=== PATIENT | male | born 1970 | race Caucasian/White ===

== ENCOUNTER 2017-12-22 11:59 | Day surgery (SDC) | payer MEDICARE, MEDICAID ==
--- NOTE | 2017-12-22 07:13 | History and Physical Report ---
DATE: 12/22/2017. CHIEF COMPLAINT AND HISTORY OF CHIEF COMPLAINT: This patient presents with a history of a postlaminectomy radiculopathy. His treatment history is extensive and conservative as well as aggressive. Opioid reduction has taken place with titration down. Due to the failure of therapy, he is here for an implanted spinal catheter infusion trial with hydromorphone to determine if the implantation of a permanent system can be of any value in his pain control. His diagnostics confirm four levels of hardware fusion at 3, 4, 5, and S1. PAST MEDICAL HISTORY: Noncontributory. PAST SURGICAL HISTORY: Multiple lumbar spinal surgeries. MEDICATIONS ON ADMISSION: To be provided; no blood thinners. ALLERGIES: None listed. SOCIAL HISTORY: Smoking, caffeine. FAMILY HISTORY: Coronary artery disease, cancer. REVIEW OF SYSTEMS: The patient seems appropriate and in no acute distress. The remainder of the systems review shows difficulty sleeping, glasses. PHYSICAL EXAMINATION: General: Height and weight unavailable. Vital Signs: Not available. HEENT: Within normal limits. Lungs: Clear. Heart: Regular rate and rhythm. Abdomen: Nontender. Musculoskeletal: Examination of the musculoskeletal system shows diffuse tenderness throughout the lumbar spine. Range of motion does produce pain into both legs. He has sensory abnormalities across the front and back surface of both legs and motor weakness in both legs. His reflexes are difficult to elicit. Ambulation: Assistive device utilized. Neurologic: Cranial nerves are intact. IMPRESSION: 1. POSTLUMBAR LAMINECTOMY SYNDROME, ICD-10 CODE M96.1. 2. RADICULOPATHY, ICD-10 CODE M54.16 AND M54.17. PLAN: The patient is here for an implanted spinal catheter infusion trial with hydromorphone to determine if the implantation of a permanent system can be of any value in his pain control. Because of the spinal catheter, a blood patch will be performed. The blood patch will require that the patient lie flat for four hours and then be slowly elevated for one hour. An overnight stay will be recommended, although an outpatient procedure can be considered. The potential risks, side effects, and complications have all been reviewed. Information from the bakery products checker was provided which fully explains the risks, side effects , and complications. Direct contact with a clinical specialist has also been provided. His questions have all been answered. JOB NUMBER: [id number] cc: Trav Lane D.O. MTDD
[~2017-12-22 11:59] MED LIST: ACETAMINOPHEN 1,000 MG/100 ML BTL IV ONE; CEFAZOLIN 2 Gram 2 GM/50 ML BAG IVPB ONE; FAMOTIDINE 20MG TABLET PO ONE; HYDROMORPHONE PF 2MG/ML AMP 0.008 MG in 0.9 % SODIUM CHLORIDE 10ML VIA 0.996 ML IV ONE; HYDROMORPHONE PF 2MG/ML AMP 8 MG in 0.9 % SODIUM CHLORIDE 500ML 496 ML IV ONE; MECLIZINE 25 MG TABLET PO ONE; METOCLOPRAMIDE 10 MG TABLET PO ONE
[2017-12-22] MEDS ORDERED: HYDROMORPHONE HCL 2 MG/ML VIAL IV ONE (12:00)
[2017-12-22] MEDS ORDERED: CEFAZOLIN 1G VIAL IM ONE (12:00)
[2017-12-22] MEDS ORDERED: LIDOCAINE 2% MDV (20MG/ML) 20ML VIAL IV ONE (12:00)
[2017-12-22] MEDS ORDERED: PROPOFOL 10 MG/ML VIAL IV ONE (12:00)
[2017-12-22] MEDS ORDERED: BUPIVACAINE 0.5% W/EPI MPF 30 ML VIAL IVP ONE (12:00)
[2017-12-22] MEDS ORDERED: 0.9 % SODIUM CHLORIDE 10 ML VIAL IVP ONE (12:00)
[2017-12-22] MEDS ORDERED: MIDAZOLAM HCL 2MG/2ML VIAL IV ONE (12:00)
[2017-12-22] MEDS ORDERED: FENTANYL PF 100MCG/2ML VIAL IV ONE (12:00)
[2017-12-22] MEDS ORDERED: LIDOCAINE 1% W/EPI 1:200,000 MPF 30ML SQ ONE (12:00)
[2017-12-22 12:13] LABS: BASO % 0.2 % (0-6); EOS % 0.8 % (0-6); GRAN % 73.2 % (47-80); HEMATOCRIT 42.7 % (42.0-52.0); HEMOGLOBIN 14.3 gm/dl (14.0-18.0); LYMPH % 19.3 % (16-45); MEAN CELL VOLUME 96.8 fl (81-97); MEAN CORPUSCULAR HEMOGLOBIN 32.4 pg (27-33); MEAN CORPUSCULAR HGB CONC 33.5 g/dl (32-36); MONO % 6.5 % (0-9); PLATELET COUNT 374 K/uL (130-400); RED BLOOD COUNT 4.41 M/uL (4.40-5.70); WHITE BLOOD COUNT W/O DIFF 18.7 K/uL (4.2-12.2)
[2017-12-22] MEDS ORDERED: HYDROMORPHONE HCL 2 MG/ML VIAL IM PRN ×2 (17:27)
[2017-12-22] MEDS ORDERED: NICOTINE POLACRILEX 2 MG GUM BC PRN ×2 (17:27)
[2017-12-22] MEDS ORDERED: AL HYDROX/MAG HYDROX 30ML UD PO PRN (17:27)
[2017-12-22] MEDS ORDERED: METOCLOPRAMIDE 10 MG TABLET PO PRN (17:27)
[2017-12-22] MEDS ORDERED: TEMAZEPAM 15 MG CAPSULE PO PRN ×2 (17:27)
[2017-12-22] MEDS ORDERED: METOCLOPRAMIDE HCL 10 MG/2 ML VIAL IVP PRN (17:27)
[2017-12-22] MEDS ORDERED: ACETAMINOPHEN 325 MG TAB PO PRN ×2 (17:27)
[2017-12-22] MEDS ORDERED: SENNOSIDES/DOCUSATE SODIUM UD CAPSULE PO PRN ×2 (17:27)
[2017-12-22] MEDS ORDERED: DIPHENHYDRAMINE HCL 25 MG CAPSULE PO PRN ×2 (17:27)
[2017-12-22] MEDS ORDERED: HYDROCODONE/APAP 7.5/325MG TABLET PO PRN ×2 (17:27)
[2017-12-22] MEDS ORDERED: DIPHENHYDRAMINE HCL 50 MG/ML VIAL IVP PRN ×2 (17:27)
[2017-12-22] MEDS ORDERED: OXYCODONE/APAP 10MG-325MG TABLET PO PRN (17:27)
[2017-12-22] MEDS ORDERED: NICOTINE 21 MG/24 HOUR PATCH TD SCH (17:30)
[2017-12-22] MEDS: RINGERS SOLUTION,LACTATED 1,000 ML IV SCH (18:43)
[2017-12-22] MEDS: OXYCODONE/APAP 10MG-325MG TABLET PO PRN (18:44)
[2017-12-22] MEDS: CEFAZOLIN 1 Gram 1 GM/50 ML BAG IVPB SCH ×2 (21:45→22:22)
[2017-12-23] MEDS: OXYCODONE/APAP 10MG-325MG TABLET PO PRN ×3 (00:29→09:17)
[2017-12-23] MEDS: CEFAZOLIN 1 Gram 1 GM/50 ML BAG IVPB SCH ×2 (05:53→06:32)
[2017-12-23] MEDS: RINGERS SOLUTION,LACTATED 1,000 ML IV SCH (05:56)
--- NOTE | 2017-12-25 21:24 | RADIOLOGY REPORT ---
EXAM: SPINE, 1 VIEW HISTORY: INTRASPINAL CATHETER INSERTION. TECHNIQUE: Single AP portable spine view of the spine is obtained including the lower thoracic spine down to the L4 level. COMPARISON: Intraoperative radiographs of the lumbar spine dated 12/22/2017 at 1613. FINDINGS: An intraspinal catheter is in place. It appears to enter the spinal canal at the L2-L3 level and the tip of the catheter is at the T12 level. No acute osseous abnormality is seen. There are mild degenerative disc/endplate changes scattered throughout the visualized spine. Posterior screw and luis f fusion of the lower lumbar spine is again noted. IMPRESSION: INTRASPINAL CATHETER IN PLACE, LIKELY ENTERING THE SPINAL CANAL AT THE L2-L3 LEVEL WITH ITS TIP AT THE T12 LEVEL. JOB NUMBER: [id number] MTDD
--- NOTE | 2017-12-29 22:44 | Operative Note - Ferro ---
DATE OF SURGERY: 12/22/17 PREOPERATIVE DIAGNOSIS: 1. POST LAMINECTOMY SYNDROME, ICD-10 CODE = M96.1. 2. LUMBAR RADICULOPATHY, ICD-10 CODE = M54.16 AND M54.17. SURGERY: 1. FLUOROSCOPIC-GUIDED PLACEMENT AND CANNULATION INTO SPINAL SPACE AT L3-4, PLACEMENT OF CATHETER INTO SPINAL SPACE T11. 2. DIAGNOSTIC MYELOGRAPHY WITH RADIOLOGIC SUPERVISION AND INTERPRETATION. 3. BOLUS OF HYDROMORPHONE INTO SPINAL SPACE, 0.008 MG. 4. INCISION, SUBCUTANEOUS DISSECTION, AND ANCHORING OF SPINAL CATHETER TO SUPRASPINOUS FASCIA USING ANCHOR AND NONABSORBABLE SUTURE. 5. INCISION, SUBCUTANEOUS DISSECTION, AND FORMATION OF SMALL SUBCUTANEOUS POUCH AT POSTERIOR GLUTEAL MARGIN. 6. TUNNELING BETWEEN SPINAL CATHETER POUCH INTO POSTERIOR GLUTEAL MARGIN POUCH WITH TUNNELING TOOL, PLACEMENT OF CATHETER INTO THE POUCH, INTERFACE CATHETER WITH SECONDARY CATHETER COMPONENT BY WAY OF CONNECTOR, TUNNELING SECOND CATHETER COMPONENT 6 CM SUPERIOR, EXITING SKIN. INTERFACE TO EXTERNAL PUMP SET TO DELIVER HYDROMORPHONE AT 0.08 MG PER DAY. 7. CLOSURE OF MIDLINE INCISION WITH STRATAFIX SUTURE, 2-0 FASCIA, 3-0 SUBCUTICULAR. CLOSURE OF POSTERIOR GLUTEAL MARGIN INCISION WITH RUNNING NYLON. NO BLOOD PATCH BECAUSE OF MULTIPLE-LEVEL FUSION. SURGEON: LENORE HOLLIS D.O. ANESTHESIA: LOCAL SEDATION. ANESTHESIA PROVIDER: SINDY MO CRNA INDICATIONS: This patient presents with a history of multiple levels of spinal fusion from 3-4 to 5-1 with screws and rods and extensive arthritic change. Due to the failure of therapy, he is here for a trial of spinal opioids using an implanted technique and Hydromorphone. SURGERY: Intravenous line, vital sign monitoring, IV sedation, prepped and draped sterile technique. The spinal interspace at L3-4 was marked, infiltrated. A #20 gauge spinal using a paramedial approached beveled with a long axis was placed into the spinal space using AP and lateral imaging. With CSF flow, a thin-walled spinal catheter was advanced and positioned at T11. Diagnostic myelography was performed. The flow characteristics were smooth and linear into the spinal space. There was no pain or adverse reaction on the part of the patient. Smooth and linear flow characteristics. Catheter was straight and linear. With these positive findings, a bolus of Hydromorphone 0.008 mg was given into the spinal space. There was still CSF flow through the catheter. The catheter was clamped. The skin above and below the needle infiltrated, incision made and subcutaneous dissection was conducted to the supraspinous fascia. The needles were removed and then the catheter was anchored to the supraspinous fascia with an anchoring device and nonabsorbable suture. CSF was still noted through the catheter. The catheter was clamped. At the posterior superior gluteal margin, skin infiltrated, incision made and subcutaneous dissection was conducted to form a small pouch. The spinal catheter was then tunneled into the posterior gluteal pouch and then once in the pouch, interfaced with a second catheter component by way of a connector. The second catheter component was then tunneled 6 cm superior from this pouch exiting the skin. It was then extended to an external pump, which was programmed to deliver into the external catheter Hydromorphone at 0.08 mg a day. The midline incision was closed with a STRATAFIX suture, 2-0 for fascia and 3-0 subcuticular. The posterior gluteal margin pouch was closed with a running nylon. There was no blood patch performed because of extensive spinal surgery. Dressings placed securing the catheter and all connections under sterile dressing. He was transported to the Recovery Room flat, pillow under head and knees, stable. There were no side effects, no unusual pain patterns, and full functionality of the extremities. He was monitored until stable and then transported to the Floor, where he was monitored and will be kept overnight for observation. He will stay flat for four hours, slowly elevated for one, and then discharged in the morning. DISCHARGE INSTRUCTIONS: 1. The sites are to remain clean and dry. No showering or bathing in any way that would disrupt dressings. 2. He has been advised on the external pump as well as the external catheter and the precautions. 3. Standard medications resumed, including Levaquin, the antibiotic, 500 mg once a day for 14 days. He is currently on OxyContin 20 mg three times a day. We will work to get him down to two and then ultimately get him off the OxyContin. 3. Spinal opioid side effects including respiratory depression, nausea, vomiting, constipation, urinary retention, lightheadedness, or rash have all be discussed and reviewed. All other instructions provided, numbers to contact if problems given. He will be discharged in the morning. 4. The office will contact him in 12 to 24 hours to set up a time in the following week for us to do our first increase. All other instructions provided , numbers to contact if problems given. He will be discharged. cc: Dr. Polo Lamb JOB NUMBER: [id number] MTDD
== END 2017-12-23 09:30 | disposition home or self-care (01) ==
LOC: SUR 11:59 → MEDSURG 17:55 → SUR 12-23 09:30
PROVIDERS: ATTEND Pain Medicine Interventional Pain Medicine
DX: M96.1 Postlaminectomy syndrome, not elsewhere classified (principal); M54.16 Radiculopathy, lumbar region; M54.17 Radiculopathy, lumbosacral region; F11.21 Opioid dependence, in remission
CPT/HCPCS: 72020; 85025; J0690; J1170; J7040; J7120

== ENCOUNTER 2018-01-05 12:42 | Day surgery (SDC) | payer MEDICAID, MEDICARE ==
--- NOTE | 2018-01-05 07:28 | History and Physical - Ferro ---
CHIEF COMPLAINT/HISTORY OF CHIEF COMPLAINT: This patient who had an implanted catheter trial initiated on 12/22/17 is here for permanent implant of the pump. The trial has succeeded in up to 75% pain control. Due to the failure of all therapies and an obvious medication dependency with multiple opioids and with the subsequent reduction dramatically of his opioid use he is here for permanent implant. PAST MEDICAL HISTORY: Noncontributory. PAST SURGICAL HISTORY: Multiple lumbar spinal surgeries and interspinal catheter implant. MEDICATIONS ON ADMISSION: List to be provided. ALLERGIES: None. FAMILY/PSYCHOSOCIAL HISTORY: Social history - Smoking and caffeine. Family history - Coronary artery disease and cancer. SYSTEMS REVIEW: The patient is appropriate in no acute distress. The remainder of the systems review is positive for sleeping disturbance and glasses. PHYSICAL EXAMINATION: Height and weight not identified. No vital signs. HEENT: Within normal limits. LUNGS: Clear. HEART: Regular rate and rhythm. ABDOMEN: Nontender. MUSCULOSKELETAL: Examination of the musculoskeletal system shows the dressings for the implanted catheter trial are intact. Spinal catheter shows all components are intact and fully covered maintaining sterility of the field. His primary pain pattern was low back with a bilateral lower extremity extension. He does show motor weakness and sensory abnormalities to both lower extremities. An assistive device is used for his ambulation. NEUROLOGIC: Cranial nerves are intact. IMPRESSION: 1. POST LUMBAR LAMINECTOMY SYNDROME, ICD-10 CODE M96.1 WITH LUMBAR RADICULOPATHY ICD-10 CODE M54.16 AND M54.17. 2. IMPLANTED SPINAL CATHETER INFUSION TRIAL OF HYDROMORPHONE. PLAN: With the success of the trial and failure of other therapies, he is here for implant of permanent system. The procedure will be considered outpatient although an overnight stay will be evaluated. JOB NUMBER: [id number] [facility]
[~2018-01-05 12:42] MED LIST changes: +HYDROMORPHONE HCL 0.04 GM in 0.9 % SODIUM CHLORIDE 10ML VIA 20 ML IV ONE; -HYDROMORPHONE PF 2MG/ML AMP 8 MG in 0.9 % SODIUM CHLORIDE 500ML 496 ML IV ONE
[2018-01-05] MEDS ORDERED: LIDOCAINE 1% W/EPI 1:200,000 MPF 30ML SQ ONE (12:43)
[2018-01-05] MEDS ORDERED: LIDOCAINE 2% MDV (20MG/ML) 20ML VIAL IV ONE (12:43)
[2018-01-05] MEDS ORDERED: PROPOFOL 10 MG/ML VIAL IV ONE (12:43)
[2018-01-05] MEDS ORDERED: CEFAZOLIN 1G VIAL IM ONE (12:43)
[2018-01-05] MEDS ORDERED: BUPIVACAINE 0.5% W/EPI MPF 30 ML VIAL IVP ONE (12:43)
[2018-01-05] MEDS ORDERED: *PACU ONLY* KETAMINE HCL 10 MG/ML (20ML) VIAL IV ONE (12:43)
[2018-01-05] MEDS ORDERED: MIDAZOLAM HCL 2MG/2ML VIAL IV ONE (12:43)
--- NOTE | 2018-01-06 23:10 | Operative Note - Ferro ---
DATE OF SURGERY: 01/05/18. PREOPERATIVE DIAGNOSES: 1. POST LUMBAR LAMINECTOMY SYNDROME, ICD-10 CODE = M96.1 WITH RADICULOPATHY, ICD-10 CODE = M54.16 AND M54.17. 2. IMPLANTED SPINAL CATHETER INFUSION TRIAL HYDROMORPHONE. SURGERY: 1. FLUOROSCOPIC-GUIDED INCISION, SUBCUTANEOUS DISSECTION, AND REMOVAL OF EXTERNAL CATHETER. 2. FLUOROSCOPIC-GUIDED INCISION, SUBCUTANEOUS DISSECTION, AND REVISION AND RESECTION OF INDWELLING SPINAL CATHETER INTERFACED WITH SECOND CATHETER COMPONENT BY WAY OF CONNECTOR. 3. INCISION, SUBCUTANEOUS DISSECTION, AND CREATION OF SUBCUTANEOUS POUCH AT RIGHT FLANK FOR PLACEMENT OF PUMP IDENTIFIED A MEDTRONIC 20 ML PROGRAMMABLE. 4. INTERFACE REVISED CATHETER TO PUMP, PLACEMENT OF PUMP INTO POUCH SECURING TO POSTERIOR FASCIA WITH NONABSORBABLE SUTURE, THREE-POINT PUMP EYELETS, PUMP INTO POUCH. 5. PLACEMENT OF CURVED #24 GAUGE RAMIREZ NEEDLE INTO ACCESS PORT PROGRAMMABLE PUMP, ASPIRATION 1 ML OF CATHETER CONTENTS CLEARING CATHETER OF OPIOID AND CSF MIXTURE. 6. DIAGNOSTIC MYELOGRAPHY WITH RADIOLOGIC SUPERVISION AND INTERPRETATION CONFIRMING CATHETER COMPONENTS, INTEGRITY OF SYSTEM, AND FUNCTIONALITY OF THE SYSTEM. 7. CLOSURE OF INCISION WITH STRATAFIX SUTURE, 2-0 FACIA AND 3-0 RUNNING SUBCUTICULAR. DERMABOND CLOSURE. 8. PROGRAMMING OF PUMP TO DELIVER BY CONTINUOUS INFUSION HYDROMORPHONE AT 0.5 MG A DAY. SURGEON: LENORE HOLLIS D.O. ANESTHESIA: LOCAL SEDATION. ANESTHESIA PROVIDER: CHANDU MAE CRNA INDICATIONS: This patient presents with a history of intractable lumbar post laminectomy radiculopathy. Due to the failure of all therapy, an implanted spinal catheter infusion trial with Hydromorphone was conducted. He had 75% pain control. Due to the failure of therapy and the success of the trial, he is here for permanent implantation. PROCEDURE: Intravenous line, vital sign monitoring, IV sedation, prepped draped sterile technique, patient positioned prone. Sterile prep and sterile technique, the previous pouch at the right flank was identified. The running nylon suture was removed. Skin infiltrated, incision made and subcutaneous dissection was conducted to form a pouch of suitable size and depth for the pump identified as a Medtronic 20 mL programmable. The indwelling catheter was identified. The connector to the external catheter was cut, the external catheter was removed by pulling away from the incision. The internal catheter was then resected and revised with a second catheter component by way of a connector. This second catheter component was interfaced to a new pump placed onto the field, 20 mL programmable [employer], pre-filled Hydromorphone 1 mg per mL. The revised catheter was interfaced to the pump. Antibiotic irrigation, Bovie for hemostasis. The pump was then placed into the formed pouch and secured to the posterior fascia with nonabsorbable suture at three points, pump eyelets. With the pump into the pouch subcutaneously, a #24 gauge Ramirez needle was inserted into the access port and 1 mL of catheter contents was aspirated clearing the catheter of opioid and CSF mixture. Diagnostic myelography was then performed. The resulting flow characteristics identified the integrity of the system. Flow at the T1-L1 spinal interspace noted, which was appropriate for the space. With this confirmation of functionality, the incision was closed using STRATAFIX suture, a 2-0 for facia and a 3-0 running subcuticular. A Dermabond closure was placed. He was transported to the Recovery Room stable, no side-effects from the procedure or the sedation. When fully awake and alert, he was prepared for discharge. DISCHARGE INSTRUCTIONS: 1. The site is to remain clean and dry. No showering or bathing in any way that would disrupt dressings. If it happens, contact the clinic. 2. Standard medications will be resumed including his Levaquin, the antibiotic, 500 mg once a day for 14 days. 3. He will be seen in the office in the next 7 to 10 days. The office will contact him in 24 to 48 hours to set up that appointment. Between now and that time, he is to keep his activities low. We will evaluate the sites to increase his activities at that point. Spinal opioid side-effects including respiratory depression, nausea, vomiting, constipation, urinary retention, light headedness or rash have all been discussed and reviewed. cc: Dr. Polo Lamb and Dr. Rojas JOB NUMBER: [id number] [facility]
== END 2018-01-05 17:10 | disposition home or self-care (01) ==
LOC: SUR 12:42
PROVIDERS: ATTEND Pain Medicine Interventional Pain Medicine
DX: M96.1 Postlaminectomy syndrome, not elsewhere classified (principal); M54.16 Radiculopathy, lumbar region; M54.17 Radiculopathy, lumbosacral region; F17.210 Nicotine dependence, cigarettes, uncomplicated
CPT/HCPCS: 62367; C1755; J0690; J1170